=== PATIENT | female | born 1955 | race Caucasian/White ===

== ENCOUNTER → 2016-06-25 | Outpatient (CLI) | payer OTHER ==
[~2016-06-25] MED LIST: AZEL205. INH; BACL20TA PO; CARI350T PO; CETI10TA24 PO; CLON-365 PO; DOXA2TAB9 PO; FLUT1DIS3 INH; IPRA4AER INH; LEVO125T5 PO; METH-356 PO; MONT10TA6 PO; OXYC5CAP4 PO; POLY17PO5 PO; REGADENOSON 0.4 MG/5 ML SYRINGE ONE; TRIA10.8 INH
== END | disposition home or self-care (01) ==
LOC: CFH 12:26
PROVIDERS: ATTEND Internal Medicine Cardiovascular Disease
DX: Z01.810 Encounter for preprocedural cardiovascular examination (principal); I08.1 Rheumatic disorders of both mitral and tricuspid valves; I10 Essential (primary) hypertension; I37.1 Nonrheumatic pulmonary valve insufficiency
CPT/HCPCS: 78452; 93017; 93306; A9502; J2785